=== PATIENT | male | born 1990 | race Caucasian/White ===

== ENCOUNTER → 2020-02-12 16:42 | Outpatient (CLI) | payer OTHER, SELFPAY ==
[2020-02-12 17:20] LABS: COVID19 -Nasal RAPID Negative (Negative)
== END ==
PROVIDERS: Visit Provider Student in an Organized Health Care Education/Training Program
DX: Z11.59 Encounter for screening for other viral diseases (principal)
CPT/HCPCS: 87635

== ENCOUNTER → 2021-03-29 10:05 | Outpatient (CLI) | payer OTHER, SELFPAY ==
[2021-03-29 10:45] LABS: COVID19 -Nasal RAPID Negative (Negative)
== END ==
PROVIDERS: Visit Provider Nurse Practitioner Family
DX: Z20.822 Contact with and (suspected) exposure to COVID-19 (principal)
CPT/HCPCS: 87635

== ENCOUNTER → 2022-07-26 16:54 | Outpatient (CLI) | payer OTHER, SELFPAY ==
--- NOTE | 2022-07-26 16:55 | DI.US.S_ITS ---
PROCEDURE: US THYROID INDICATIONS: GOITER TECHNIQUE: Real-time scanning was performed of the thyroid gland, with image documentation. COMPARISON: [facility], [place], US THYROID, 10/18/2021, 15:11. FINDINGS: Right: Thyroid lobe measures 5.5 x 1.8 x 1.3 cm, and is homogeneous in echotexture. Left: Thyroid lobe measures 6.1 x 1.6 x 1.6 cm, and is homogenous in echotexture. Isthmus: 6 mm thick. Nodule number: 1 Location: Left inferior lobe Size: 0.8 x 0.6 x 0.8 cm. Composition: Solid Echogenicity: Hypoechoic Shape: wider than tall. Margins: Smooth Echogenic foci: Questionable punctate calcifications Total points: 7 ACR TI-RADS category: 4 versus 5 (depending upon punctate calcifications). Nodule number: 2 Location: Right inferior Size: 1.9 x 1.0 x 0.9 cm. Composition: Predominantly solid Echogenicity: Hypoechoic Shape: wider than tall. Margins: Smooth Echogenic foci: None Total points: 4 ACR TI-RADS category: 4 IMPRESSION: 1. TI rads 4 illl-defined nodule within the inferior right thyroid lobe which measures up to 1.9 cm in diameter. FNA recommended. 2. Stable nodule within the left inferior thyroid lobe. It is unclear whether there are punctate calcifications present on the current study versus artifact. Continued surveillance recommended. ACR TI-RADS definitions and recommendations: TI-RADS 1 (benign): 0 points. FNA not needed. TI-RADS 2 (not suspicious): 2 points. FNA not needed. TI-RADS 3 (mildly suspicious): 3 points. * FNA if 2.5 cm or larger, follow up if 1.5 cm or larger (at 1, 3, and 5 years). TI-RADS 4 (moderately suspicious): 4-6 points. * FNA if 1.5 cm or larger, follow up if 1 cm or larger (at 1, 2, 3, and 5 years). TI-RADS 5 (highly suspicious): 7 points or more. * FNA if 1 cm or larger, follow up if 0.5 cm or larger (every year for 5 years). Dictated by: Isabel Page M.D. on 07/27/2022 at 12:07 Approved by: Isabel Page M.D. on 07/27/2022 at 12:16
== END ==
PROVIDERS: PCP Student in an Organized Health Care Education/Training Program; Referring Provider Student in an Organized Health Care Education/Training Program; Visit Provider Student in an Organized Health Care Education/Training Program
DX: E04.2 Nontoxic multinodular goiter (principal)
CPT/HCPCS: 76536

== ENCOUNTER → 2022-08-10 15:01 | Outpatient (CLI) | payer OTHER, SELFPAY ==
--- NOTE | 2022-08-10 15:02 | DI.US.S_ITS ---
PROCEDURE: US SOFT TISSUE HEAD AND NECK INDICATIONS: POSSIBLE FNA INFERIOR THYROID TECHNIQUE: Real-time scanning was performed of the neck region of interest, with image documentation. COMPARISON: [facility], [place], US THYROID, 10/18/2021, 15:11. [facility], [place], US THYROID, 07/26/2022, 17:21. FINDINGS: The previously described right inferior nodule is not visualized on the current exam. IMPRESSION: 1. Previously described TI-4 nodule in the inferior pole of the right thyroid lobe is not well seen on the current exam. Recommend a short-term follow-up ultrasound in 6 months. Dictated by: Lelo Yung M.D. on 08/10/2022 at 17:14 Approved by: Lelo Yung M.D. on 08/10/2022 at 17:18
== END ==
PROVIDERS: PCP Student in an Organized Health Care Education/Training Program; Referring Provider Student in an Organized Health Care Education/Training Program; Visit Provider Student in an Organized Health Care Education/Training Program
DX: E04.1 Nontoxic single thyroid nodule (principal)
CPT/HCPCS: 76536

== ENCOUNTER → 2022-11-04 | Outpatient (CLI) | payer OTHER, SELFPAY ==
--- NOTE | 2022-11-04 17:00 | DI.US.S_ITS ---
PROCEDURE: US THYROID INDICATIONS: THYROID NODULE TECHNIQUE: Real-time scanning was performed of the thyroid gland, with image documentation. COMPARISON: [facility], [place], US THYROID, 07/26/2022, 17:21. FINDINGS: Right: Thyroid lobe measures 1.9 x 5.9 x 1.0 cm, and is homogeneous in echotexture. Left: Thyroid lobe measures 5.1 x 1.3 x 1.6 cm, and is homogenous in echotexture. Isthmus: 4 mm thick. Nodule number: 1 Location: Left inferior nodule Size: 1.0 x 0.6 x 0.9 cm, previously 0.8 x 0.6 x 0.8 cm. Composition: Predominantly solid Echogenicity: Hypoechoic Shape: wider than tall. Margins: Smooth Echogenic foci: None Total points: 4 ACR TI-RADS category: TI-RADS 4 (moderately suspicious) Previously visualized right inferior lobe nodule is not visualized on current exam. Small 4 mm nodule is seen in the right thyroid gland, too small to characterize. IMPRESSION: 1. Left inferior nodule is moderately suspicious measuring up to 1.0 cm. Continued surveillance is recommended. 2. Previously visualized right inferior lobe nodule is not seen on current exam. ACR TI-RADS definitions and recommendations: TI-RADS 1 (benign): 0 points. FNA not needed. TI-RADS 2 (not suspicious): 2 points. FNA not needed. TI-RADS 3 (mildly suspicious): 3 points. * FNA if 2.5 cm or larger, follow up if 1.5 cm or larger (at 1, 3, and 5 years). TI-RADS 4 (moderately suspicious): 4-6 points. * FNA if 1.5 cm or larger, follow up if 1 cm or larger (at 1, 2, 3, and 5 years). TI-RADS 5 (highly suspicious): 7 points or more. * FNA if 1 cm or larger, follow up if 0.5 cm or larger (every year for 5 years). Approved by: Lluvia Calvert M.D. on 11/08/2022 at 16:32
== END ==
LOC: US 16:59
PROVIDERS: PCP Internal Medicine; Referring Provider Internal Medicine; Visit Provider Internal Medicine
DX: E04.1 Nontoxic single thyroid nodule (principal)
CPT/HCPCS: 76536